=== PATIENT | male | born 1950 | race Caucasian/White ===

== ENCOUNTER 2018-08-23 05:45 | Day surgery (SDC) | payer OTHER ==
[2018-08-23] MEDS ORDERED: PROPOFOL 40 ML (08:50)
== END 2018-08-23 10:11 | disposition home or self-care (01) ==
LOC: GIL 05:45
DX: K29.50 Unspecified chronic gastritis without bleeding (principal); I10 Essential (primary) hypertension; E78.5 Hyperlipidemia, unspecified
CPT/HCPCS: 43239; 88305; 88312